=== PATIENT | male | born 1955 | race Caucasian/White ===

== ENCOUNTER 2018-03-12 08:14 | Outpatient (CLI) | payer OTHER ==
--- NOTE | 2018-03-12 09:31 | RAD ---
LEFT FOOT THREE VIEWS: HISTORY: Pain. History of fracture. TECHNIQUE: AP, lateral, and oblique views of the left foot are obtained. FINDINGS: Vascular calcifications are seen. No definite evidence of acute left foot fractures is seen. If the re is a history of fractures, where is the site? I do not have access to the patient's history, nuria cating the location of the patient's pain. This would be of use. IMPRESSION: 1. Vascular calcifications. 2. No definite evidence of acute left foot fracture is seen; however, correlate with clinical examin ation. A nondisplaced left foot fracture could not be excluded. POS: [facility]
== END 2018-03-12 08:15 | disposition home or self-care (01) ==
LOC: MADRAD 08:14
PROVIDERS: ATTEND Orthopaedic Surgery
DX: S92.902A Unspecified fracture of left foot, initial encounter for closed fracture (principal); I70.90 Unspecified atherosclerosis